=== PATIENT | female | born 1990 | race Hispanic/Latino ===

== ENCOUNTER 2018-10-13 23:16 | Observation (INO) | payer OTHER, SELFPAY ==
[2018-10-13] MEDS ORDERED: Ondansetron PF 4 MG/2 ML Vial ONE (23:37)
--- NOTE | 2018-10-13 23:50 | CT ---
CT OF BRAIN PERFORMED WITHOUT CONTRAST ENHANCEMENT: Date: 10/13/18 HISTORY: New onset seizure. FINDINGS: The ventricular and cisternal system is within normal limits. There are no signs of intracerebral hem orrhage or extra-axial fluid collections. The mastoid air cells and visualized sinuses are clear. IMPRESSION: No acute intracranial abnormalities. POS: [facility]
[2018-10-13 23:59] LABS: #Eosinphils 0.2 thou/uL (0.0-0.7); #Lymphocytes 3.2 thou/uL (1.20-3.40); #Monocytes 0.7 thou/uL (0.11-0.59); #Neutrophils 5.6 thou/uL (1.40-6.50); %Basophils 0.4 % (0.0-1.0); %Eosinophils 1.9 % (0.0-10.0); %Lymphocytes 32.8 % (21.0-51.0); %Monocytes 7.2 % (0.0-10.0); %Neutrophils 57.6 % (42.0-75.0); Hemoglobin 14.2 g/dL (12.0-16.0); Mean Corpuscular Hemoglobin 30.7 pg (27.0-31.0); Mean Corpuscular Volume 93.1 fL (78.0-98.0); Mean Platelet Volume 7.7 fL (7.4-10.4); Platelet Count 352 thou/uL (130-400); RBC Distribution Width 12.7 % (11.5-14.5); Red Blood Cell (RBC) Count 4.63 mill/uL (4.20-5.40); White Blood Cell (WBC) Count 9.7 thou/uL (4.8-10.8)
[2018-10-14 00:02] LABS: BHCG - Serum Negative (NEGATIVE); Pregs Control Background? CLEAR/WHITE (CLR/WHITE); Pregs Control Bar Appear? YES (CONTROL BAR)
[2018-10-14 00:02] LABS: Bilirubin Negative (Negative); Blood, Urine Negative (Negative); Clarity CLEAR (Clear); Glucose, Urine (Dipstick) Negative (Negative); Leukocyte Small (Negative); Nitrite Negative (Negative); Protein, Urine (Dipstick) Negative (Neg-Trace); Specific Gravity, Urine 1.024 (1.002-1.036); pH, Urine 6.5 (5.0-9.0)
[2018-10-14 00:04] LABS: Bacteria/HPF None Seen HPF (None Seen); Hyaline Casts/LPF 0-3 HYALINE CAST LPF (0-3 Hyaline); Pathc Cast-AUWi Flag 0.14 (0-2.49); Squamous Epithelial 0-3 HPF (0-3)
[2018-10-14 00:12] LABS: Amphetamine Not Detected (NotDetected); Barbiturates Screen Not Detected (NotDetected); Benzodiazepine Screen Not Detected (NotDetected); Cocaine Metabolite Screen Not Detected (NotDetected); Medtox Control Line Valid? VALID (VALID); Medtox Reader # READER 1; Methadone Not Detected (NotDetected); Methamphetamine Not Detected (NotDetected); Opiate Screen Not Detected (NotDetected); Oxycodone Screen Not Detected (NotDetected); Phencyclidine (PCP) Not Detected (NotDetected); THC/Cannabinoid Screen Not Detected (NotDetected); Tricyclic Screen Not Detected (NotDetected)
[2018-10-14 00:17] LABS: ALT (SGPT) 21 U/L (8-55); AST (SGOT) 20 U/L (5-34); Albumin 4.6 g/dL (3.5-5.0); Alkaline Phosphatase 70 U/L (40-150); Anion Gap 15 mmol/L (10-20); BUN (Urea Nitrogen) 9 mg/dL (7.0-18.7); Bilirubin, Total 0.5 mg/dL (0.2-1.2); Calc. Creatinine Clearance 0 mL/min (70-130); Calcium 9.6 mg/dL (7.8-10.44); Carbon Dioxide 22 mmol/L (22-29); Chloride 106 mmol/L (98-107); Estimated GFR-MDRD 85; Globulin 3.3 g/dL (2.4-3.5); Glucose 103 mg/dL (70-105); Potassium 3.4 mmol/L (3.5-5.1); Protein, Total 7.9 g/dL (6.0-8.3); Sodium 140 mmol/L (136-145)
[2018-10-14 00:18] LABS: Acetaminophen Less than 6.0 mcg/mL (10.0-30.0); Alcohol Less than 10 mg/dL (Less than 10); CK (CPK) 107 U/L (29-168); Salicylate Less than 8.0 mg/dL (15.0-30.0)
[2018-10-14] MEDS ORDERED: Lorazepam 2 MG/ML VIAL SLOW IVP PRN (01:50)
[2018-10-14 02:49] VITALS: BMI 31.5
[2018-10-14] MEDS ORDERED: Ondansetron ODT 4 MG TAB PO PRN (05:58)
[2018-10-14] MEDS ORDERED: Acetaminophen 325 MG TAB PO PRN (05:58)
[2018-10-14] MEDS ORDERED: Ondansetron PF 4 MG/2 ML Vial IVP PRN (05:58)
--- NOTE | 2018-10-14 06:36 | HP ---
PRIMARY CARE DOCTOR: The patient does not have a PCP. CODE STATUS: Full code. TIME OF EVALUATION: 6:00 a.m. CHIEF COMPLAINT FOR THIS PATIENT: Seizures. HISTORY OF PRESENT ILLNESS: This is a 28-year-old female patient. 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 The patient developed a postictal state that lasted for about 10 minutes as per sister who was witnessing the seizure. Symptoms were severe, started suddenly, the patient has had no other events after admission. REVIEW OF SYSTEMS: CONSTITUTIONAL: No fever, chills, or generalized weakness. RESPIRATORY: No cough, sputum production, or shortness of breath. CARDIOVASCULAR: No chest pain or palpitation. GASTROINTESTINAL: No nausea, no vomiting, diarrhea, or abdominal pain. HOCKEY SCOUT: The patient has an episode of complex seizure described in HPI. No dizziness, headache, or feeling lightheaded. GENITOURINARY: No burning on urination. EXTREMITIES: No leg swelling. All other systems were reviewed and negative except for the findings mentioned above. PAST MEDICAL HISTORY: Positive for factor S deficiency. FAMILY HISTORY: Reviewed, noncontributory for current presentation. SOCIAL HISTORY: Lives with family. No drugs or alcohol. No smoking history reported. PAST SURGICAL HISTORY: None reported. ALLERGIES: NO KNOWN DRUG ALLERGIES. REPORTED MEDICATIONS: No home medications reported. PHYSICAL EXAMINATION: VITAL SIGNS: On presentation, blood pressure 134/81 with heart rate 119, respiratory rate was 18, temperature 98.6, pain 0/10. Oxygen saturation was 99 % on room air. GENERAL APPEARANCE: The patient is alert, oriented, no acute distress. HEENT: Moist oral mucosa. Anicteric. No JVD. RESPIRATORY: Bilateral air entry. No rales. No wheezing. Symmetric expansion. CARDIOVASCULAR: Normal rate, regular rhythm. No murmurs, no gallops. No edema. ABDOMEN: Soft. Normal bowel sounds. MUSCULOSKELETAL: Baseline range of motion and strength. No tenderness. SKIN: Warm and intact. No pallor. No rash. No redness. Peripheral pulses are present. Capillary refill seems to be intact. NEURO: No evidence of any new focal weakness. Baseline speech. Cranial nerves seems to be intact. PSYCH: The patient has good mood. No anxiety. Optimal judgment. DIAGNOSTIC STUDIES: Brain CT was done, no acute intracranial abnormalities. Labs were reviewed. The patient has white count 9.7, hemoglobin 14.2, MCV 93, platelet count 352. Chemistry; sodium 140, potassium 3.4, chloride 106, carbon dioxide 22, anion gap 15, BUN 9, creatinine 0.8, GFR 85, glucose 103, calcium 9.6, total bilirubin 0.5. LFTs were negative. Prolactin 93.8. test was negative. UA, the patient has some white counts and toxicology was negative. ASSESSMENT AND PLAN: The patient presented to the hospital with following medical problems: 1. New onset seizures, this is the patient's first episode. There was no evidence of any neurological abnormalities on the CAT scan. As of now, we will not start the patient on any medication unless patient has recurrent seizures. We will consult Neurology. We will follow recommendations. The patient has never had a stroke. However, it is something of consideration. The patient has deficit of protein S. We will defer to Neuro for any further recommendation regarding this problem. 2. Asymptomatic bacteruria. We will not treat at this point. If the patient develop any signs of infection, I will start antibiotics. 3. Deep venous thrombosis prophylaxis. Job ID: [id number] [facility]
--- NOTE | 2018-10-14 09:52 | CON ---
DATE OF CONSULTATION: 10/14/2018 CONSULTING PHYSICIAN: Hospitalist Service. IMPRESSION: New-onset seizure. PLAN: 1. EEG. 2. Monitor for further events before committing to anticonvulsant therapy. HISTORY OF PRESENT ILLNESS: Ms. Anthony is a 28-year-old female with no significant past history. She was at home when she started to feel anxious. She apparently lost consciousness and had a generalized tonic-clonic seizure. She awoke while lying on the floor looking up at her family. She felt confused and had a headache. She was brought into the hospital for evaluation last night. Her CT scan of the brain was normal. Her vital signs have been fine. Laboratory studies were also unremarkable other than elevated prolactin. She has never had any seizure activity in the past. She denies a history of head injury, meningitis, or encephalitis. PAST MEDICAL HISTORY: Otherwise negative. ALLERGIES: NONE. SOCIAL HISTORY: No illicit drug use. FAMILY HISTORY: Noncontributory. MEDICATION LIST: None. REVIEW OF SYSTEMS: 10-system review of systems is otherwise negative other than a history of pulmonary embolus. PHYSICAL EXAMINATION: VITAL SIGNS: Blood pressure 117/60, pulse 90, respirations 20, temperature 98.5. HEENT: Pupils equal and reactive. Conjunctivae clear. Oropharynx clear. No tongue trauma present. NECK: Supple. No lymphadenopathy. EXTREMITIES: No cyanosis. NEUROLOGIC: She is alert and appropriate. Her speech is fluent and clear. Exam is nonfocal. No abnormal movements were seen. SUMMARY: So, a young woman with new onset of seizure with slight aura prior to the onset of anxiety. We will complete her workup with an EEG, and we will follow her as an outpatient. Job ID: [id number]
[2018-10-14] MEDS: Enoxaparin Sodium 40 MG/0.4 ML SYRINGE SC SCH (10:00)
[2018-10-15 05:31] LABS: #Basophils 0.1 thou/uL (0.0-0.2); #Eosinphils 0.2 thou/uL (0.0-0.7); #Lymphocytes 2.8 thou/uL (1.20-3.40); #Monocytes 0.7 thou/uL (0.11-0.59); #Neutrophils 4.8 thou/uL (1.40-6.50); %Basophils 1.1 % (0.0-1.0); %Eosinophils 2.4 % (0.0-10.0); %Lymphocytes 32.5 % (21.0-51.0); %Monocytes 7.7 % (0.0-10.0); %Neutrophils 56.3 % (42.0-75.0); Hemoglobin 13.4 g/dL (12.0-16.0); Mean Corpuscular HGB CONC 34.1 g/dL (32.0-36.0); Mean Corpuscular Hemoglobin 32.1 pg (27.0-31.0); Mean Corpuscular Volume 94.2 fL (78.0-98.0); Mean Platelet Volume 7.6 fL (7.4-10.4); Platelet Count 299 thou/uL (130-400); RBC Distribution Width 12.8 % (11.5-14.5); Red Blood Cell (RBC) Count 4.18 mill/uL (4.20-5.40); White Blood Cell (WBC) Count 8.6 thou/uL (4.8-10.8)
[2018-10-15 06:01] LABS: Anion Gap 14 mmol/L (10-20); BUN (Urea Nitrogen) 10 mg/dL (7.0-18.7); Calc. Creatinine Clearance 126 mL/min (70-130); Calcium 9.3 mg/dL (7.8-10.44); Carbon Dioxide 21 mmol/L (22-29); Chloride 108 mmol/L (98-107); Estimated GFR-MDRD Greater than 90; Glucose 91 mg/dL (70-105); Potassium 3.9 mmol/L (3.5-5.1); Sodium 139 mmol/L (136-145)
[2018-10-15 09:26] VITALS: BP 111/58; TEMP 97.9
[2018-10-15] MEDS: Enoxaparin Sodium 40 MG/0.4 ML SYRINGE SC SCH (09:33)
--- NOTE | 2018-10-15 15:23 | DIS ---
DATE OF ADMISSION: 10/14/2018 DATE OF DISCHARGE: 10/15/2018 PRIMARY CARE DOCTOR: None. CONSULTANTS: Avinash Merrill MD, Neurology. CODE STATUS: Full. PROCEDURES: The patient had a CT of the brain, which showed no acute intracranial abnormalities. The patient also had an EEG which per Dr. Merrill was normal. HOSPITAL COURSE: Ms. Anthony is a 28-year-old female, who presented to the emergency room via EMS on 10/13/2018 for evaluation of a possible syncopal event, possible seizure, which had occurred prior to their arrival. EMS did report the patient was in the kitchen table with the patient's sister making gifts, when the patient experienced a sudden episode of seizure-like convulsions. Sister reported that the episode lasted approximately 3 to 5 minutes. The patient reports that she does not recall event clearly. Last thing she remembers is waking up with family standing over her. She reports that she did hit her head on the corner and was confused when initially waking up. The patient did deny any drug, any depressant, or other medications. Denied any chest pain or shortness of breath at that time. CT scan done in the emergency room was negative for any acute process. The patient was admitted to the observation unit for further management. Underwent EEG. Dr. Merrill consulted. He stated that he is not going to start her on any medication unless she had a subsequent seizure. Saw the patient on day of discharge, she denied any further seizure-like activity. He cleared her to go home and to follow up with him as an outpatient if she continues to have any other signs or symptoms. DISCHARGE DIAGNOSIS: Seizure, etiology unknown. REVIEW OF SYSTEMS: The patient was examined prior to discharge. Denied any complaints. Denied any seizure-like activity. Denied any headache, chest pain, or shortness of breath. All other systems reviewed and are negative unless mentioned in the hospital course. PHYSICAL EXAMINATION: VITAL SIGNS: Temperature is 97.9, pulse is 73, respirations 16, O2 saturations 95% on room air, and blood pressure is 111/58. CONSTITUTIONAL: The patient is alert and oriented, walking around the room. Nontoxic appearing. HEENT: Head is atraumatic and normocephalic. Eyes are equally round and reactive to light. Extraocular muscles are intact. ENT, mouth exam is normal. Mucous membranes are moist. NECK: Normal range of motion. Trachea is midline. RESPIRATORY: Chest, breath sounds are clear. No findings of respiratory distress. CARDIOVASCULAR: Regular heart rate and rhythm. Heart sounds are normal. ABDOMEN: Soft and nontender. Bowel sounds are heard. BACK: Normal range of motion. No CVA tenderness. EXTREMITIES: Upper extremity, range of motion is normal. Motor strength is normal. Radial pulses are equal bilaterally. Lower extremity, normal range of motion. Normal inspection. Motor strength is normal. Pedal pulses are equal bilaterally. NEUROLOGIC: Cranial nerves 2 through 12 are grossly intact. Strength is equal in all extremities. No focal sensory or motor deficits. SKIN: Warm, dry, and normal in color. PSYCH: Normal affect. ALLERGIES: NONE. MEDICATIONS: None. DISCHARGE CONDITION: Stable. DISPOSITION: The patient will be discharged home. DISCHARGE INSTRUCTION: The patient to establish care with primary care. FOLLOWUP: Follow up with Dr. Merrill, if she has any continued symptoms. Job ID: [id number]
--- NOTE | 2018-10-17 12:11 | EEG ---
Referring Physician: PORUBSKY EEG # [id number] TEST TYPE: ROUTINE PORTABLE INPATIENT REPORT: AN EEG USING THE [employer]NATIONAL TEN-TWENTY SYSTEM OF ELECTRODE PLACEMENT WAS PERFORMED. The waking background is a 10 hertz alpha frequency. The patient became drowsy , but no sleep was seen. Photic stimulation and hyperventilation were unremarkable. No epileptiform features were present. IMPRESSION: THIS IS A NORMAL AWAKE AND DROWSY EEG. Business Development Assistant: SARATH Timber Buyer: [email or web address] BONNER
== END 2018-10-15 11:55 | disposition home or self-care (01) ==
LOC: ERS 23:16 → 2SW 10-14 01:49
PROVIDERS: ADMIT Hospitalist; ATTEND Hospitalist
DX: G40.409 Other generalized epilepsy and epileptic syndromes, not intractable, without status epilepticus (principal); D68.9 Coagulation defect, unspecified; Z86.711 Personal history of pulmonary embolism
CPT/HCPCS: 36415; 70450; 80048; 80053; 80306; 80307; 81003; 81015; 82550; 84146; 84703; 85025; 87086; 95816; 95819; 96372; G0378; J1650; J2405

== ENCOUNTER 2022-10-11 19:18 | Observation (INO) | payer MEDICAID, SELFPAY ==
[~2022-10-11 19:18] MED LIST: Iopamidol-370 76% 500 ML 1 ML ONE
[2022-10-11 20:12] LABS: #Lymphocytes 0.5 thou/uL (1.20-3.40); #Monocytes 1.2 thou/uL (0.11-0.59); #Neutrophils 9.4 thou/uL (1.40-6.50); %Eosinophils 0.4 % (0.0-10.0); %Lymphocytes 4.1 % (21.0-51.0); %Monocytes 10.4 % (0.0-10.0); %Neutrophils 85.1 % (42.0-75.0); Hemoglobin 14.3 g/dL (12.0-16.0); Mean Corpuscular Hemoglobin 31.8 pg (27.0-31.0); Mean Corpuscular Volume 90.9 fl (78.0-98.0); Mean Platelet Volume 7.9 fL (7.4-10.4); Platelet Count 283 10x3/uL (130-400); Red Blood Cell (RBC) Count 4.49 mill/uL (4.20-5.40); White Blood Cell (WBC) Count 11.1 10x3/uL (4.8-10.8)
[2022-10-11 20:13] LABS: Bilirubin Negative (Negative); Blood, Urine Negative (Negative); Clarity Clear (Clear); Glucose, Urine (Dipstick) Normal (Negative); Ketone, Urine Negative (Negative); Leukocyte Negative Leu/uL (Negative); Nitrite Negative (Negative); Protein, Urine (Dipstick) 10 mg/dL (Neg-Trace); Specific Gravity, Urine 1.026 (1.002-1.036)
[2022-10-11] MEDS ORDERED: Cefepime 2 GM VIAL ONE (20:15)
[2022-10-11] MEDS ORDERED: Acetaminophen 500 MG TAB ONE (20:15)
[2022-10-11 20:17] LABS: BHCG - Serum Negative (NEGATIVE); Pregs Control Background? CLEAR/WHITE (CLR/WHITE); Pregs Control Bar Appear? YES (CONTROL BAR)
[2022-10-11 20:25] LABS: Prothrombin Time 13.8 sec (12.0-14.7)
[2022-10-11 20:33] LABS: ALT (SGPT) 40 U/L (8-55); AST (SGOT) 22 U/L (5-34); Albumin 4.9 g/dL (3.5-5.0); Alkaline Phosphatase 68 U/L (40-110); Anion Gap 14 mmol/L (10-20); BUN (Urea Nitrogen) 7 mg/dL (7.0-18.7); Bilirubin, Total 0.7 mg/dL (0.2-1.2); Calc. Creatinine Clearance 0 mL/min (70-130); Calcium 9.6 mg/dL (7.8-10.44); Carbon Dioxide 20 mmol/L (22-29); Chloride 105 mmol/L (98-107); Estimated GFR 103; Globulin 3.7 g/dL (2.4-3.5); Glucose 106 mg/dL (70-105); Potassium 3.4 mmol/L (3.5-5.1); Protein, Total 8.6 g/dL (6.0-8.3); Sodium 136 mmol/L (136-145)
[2022-10-11] MEDS ORDERED: VANCOMYCIN 1.75 GM/500 ML BAG 1.75 GM in Premix Bag 1 BAG IVPB SCH (21:45)
[2022-10-11 22:01] LABS: SARS-CoV-2 NAA Rapid Test DETECTED (NotDetected)
[2022-10-11] MEDS ORDERED: Potassium Chloride 20 MEQ TAB ONE (23:14)
[2022-10-11 23:23] LABS: Magnesium 1.7 mg/dL (1.6-2.6)
== END 2022-10-12 00:29 | disposition home or self-care (01) ==
LOC: ERS 19:18 → ERHOLD 23:06
PROVIDERS: ADMIT Internal Medicine; ATTEND Internal Medicine
DX: U07.1 COVID-19 (principal); F17.200 Nicotine dependence, unspecified, uncomplicated
CPT/HCPCS: 71045; 71275; 80053; 81003; 83605; 83735; 83880; 84443; 84484; 84703; 85025; 85610; 85730; 87040; 87086; 93005; 96365; J0692; J3370; Q9967

== ENCOUNTER 2023-07-14 10:38 | Emergency (ER) | payer SELFPAY | END 2023-07-14 12:18 | disposition home or self-care (01) | LOC: ERS 10:38 | DX: L03.116 Cellulitis of left lower limb (principal); F17.200 Nicotine dependence, unspecified, uncomplicated | CPT/HCPCS: 99283 ==